=== PATIENT | male | born 1960 ===

== ENCOUNTER 2024-12-05 05:21 | Day surgery (SDC) | payer OTHER ==
[2024-12-01 10:22] VITALS: BP 138/87
[~2024-12-05] VITALS: Ht 170.2 cm; Wt 102.1 kg
[~2024-12-05 05:21] MED LIST: ADULT LOW DOSE81 M1; AVAPRO300 MG PO; JANUMET 50-1,01 EACH; LIPITOR40 MG PO; NORVASC5 MG; PEPCID AC10 MG; TOPROL XL25 M1
[2024-12-05] MEDS ORDERED: LIDOCAINE HCL 1%/EPINEPHRINE 20ML VIAL IJ ONE (08:00)
[2024-12-05] MEDS ORDERED: METHYLPREDNISOLONE ACETATE 80 MG/ML VIAL IU ONE (08:00)
[2024-12-05] MEDS ORDERED: EPINEPHRINE HCL/PF 1 MG/ML AMPUL IR ONE (08:00)
[2024-12-05] MEDS ORDERED: CEFAZOLIN SODIUM 1,000 MG VIAL IV ONE ×2 (08:00→08:30)
[2024-12-05] MEDS ORDERED: BUPIVACAINE HCL 30 ML VIAL IJ ONE (08:00)
[2024-12-05] MEDS ORDERED: PROMETHAZINE HCL 25 MG/ML AMPUL IM PRN (08:30)
[2024-12-05] MEDS ORDERED: MEPERIDINE HCL/PF 25 MG/ML VIAL IM PRN (08:30)
[2024-12-05] MEDS ORDERED: DUI500 PO (08:35)
[2024-12-05] MEDS ORDERED: TRAM1TAB98 PO (08:36)
== END 2024-12-05 11:45 | disposition home or self-care (01) ==
LOC: CIR.AMB 05:21
PROVIDERS: ATTEND Orthopaedic Surgery Sports Medicine
DX: M23.222 Derangement of posterior horn of medial meniscus due to old tear or injury, left knee (principal); M17.12 Unilateral primary osteoarthritis, left knee; M22.42 Chondromalacia patellae, left knee; M23.52 Chronic instability of knee, left knee